=== PATIENT | male | born 1955 | race Caucasian/White ===

== ENCOUNTER 2021-10-20 08:45 | Day surgery (SDC) | payer BC ==
[2021-10-17 09:11] VITALS: BMI 25.0
[2021-10-20] MEDS ORDERED: LIDOCAINE HCL 2% (20ML MULTI-DOSE VIAL) ONE (08:53)
[2021-10-20] MEDS ORDERED: EPINEPHrine/PF 1 MG/1 ML (1:1,000) AMPULE ONE (08:53)
[2021-10-20] MEDS ORDERED: BUPIVACAINE HCL/PF 0.25% (2.5MG/ML) 10 ML VIAL ONE (08:53)
[2021-10-20] MEDS ORDERED: SUCCINYLCHOLINE CHLORIDE 200 MG/10 ML SYRINGE ONE (08:53)
[2021-10-20] MEDS ORDERED: PROPOFOL 20 ML ONE ×4 (08:53→13:58)
[2021-10-20] MEDS ORDERED: BUPIVACAINE HCL/PF 2.5 MG/ML - 30 ML VIAL IJ ONE (08:53)
[2021-10-20] MEDS ORDERED: BUPIVACAINE LIPOSOME/PF (EXPAREL) 266 MG/20 ML VIAL ONE (08:58)
[2021-10-20] MEDS ORDERED: HEPARIN NA (PORCINE) 5,000 UNITS/ML 1ML VIAL ONE (10:11)
[2021-10-20] MEDS ORDERED: DEXAMETHASONE SOD PHOSPHATE 4 MG/1 ML VIAL ONE (10:29)
[2021-10-20] MEDS ORDERED: ceFAZolin SODIUM 1 GM VIAL ONE ×3 (10:29→21:26)
[2021-10-20] MEDS ORDERED: HYDROmorphone HCL/PF 1 MG/ML VIAL ONE ×2 (10:35→10:57)
[2021-10-20] MEDS ORDERED: ROCURONIUM BROMIDE 50 MG/5 ML SYRINGE ONE ×2 (10:36→11:32)
[2021-10-20] MEDS ORDERED: BUPIVACAINE LIPOSOME/PF (EXPAREL) 266 MG/20 ML VIAL IJ ONE (11:39)
[2021-10-20] MEDS ORDERED: BUPIVACAINE HCL/PF 0.25% (2.5MG/ML) 10 ML VIAL IJ ONE (11:39)
[2021-10-20] MEDS ORDERED: BACITRACIN 15 GM TUBE TOPICAL OINTMENT ONE (12:34)
[2021-10-20] MEDS ORDERED: DESFLURANE GAS 240 ML BOTTLE IH ONE (12:43)
[2021-10-20] MEDS ORDERED: NEOSTIGMINE METHYLSULFATE 0.5 MG/1 ML - 10 ML MDV ONE (14:01)
[2021-10-20] MEDS ORDERED: ONDANSETRON 4 MG/2 ML VIAL IVPB PRN (14:19)
[2021-10-20] MEDS ORDERED: oxyCODONE HCL 5 MG TABLET PO PRN (14:19)
[2021-10-20] MEDS ORDERED: PROMETHAZINE HCL 25 MG/1 ML VIAL IVPUSH PRN (14:23)
[2021-10-20] MEDS ORDERED: ACETAMINOPHEN 1000 MG/100 ML BAG IVPB PRN (14:24)
[2021-10-20] MEDS ORDERED: LACTATED RINGERS SOLUTION 1,000 ML IV SCH (14:30)
[2021-10-20] MEDS: morphine SULFATE 4 MG/ML VIAL IVPUSH PRN ×2 (16:42→21:28)
[2021-10-20] MEDS ORDERED: DEXTROSE 5%-WATER - 50 ML IVPB ONE ×2 (17:40→21:26)
[2021-10-20] MEDS: CEFAZOLIN 1 GM in DEXTROSE 5%-WATER - 50 ML IVPB SCH ×2 (17:45→23:19)
[2021-10-20] MEDS: CARBIDOP 25MG/LEVODOPA 100MG/ENTACAPONE 200MG TABLET PO SCH ×2 (18:35→21:23)
[2021-10-20] MEDS ORDERED: ATORVASTATIN CA 20 MG TABLET (FP) PO SCH (22:00)
[2021-10-21] MEDS: oxyCODONE HCL 5 MG TABLET PO PRN ×2 (00:24→09:26)
[2021-10-21] MEDS ORDERED: ceFAZolin SODIUM 1 GM VIAL ONE (06:02)
[2021-10-21] MEDS ORDERED: DEXTROSE 5%-WATER - 50 ML IVPB ONE (06:02)
[2021-10-21] MEDS: CEFAZOLIN 1 GM in DEXTROSE 5%-WATER - 50 ML IVPB SCH (06:05)
[2021-10-21] MEDS: HEPARIN NA (PORCINE) 5,000 UNITS/ML 1ML VIAL SQ SCH ×2 (08:28→09:27)
[2021-10-21 09:12] VITALS: BP 131/85; PULSE 90; TEMP 98.2
[2021-10-21] MEDS: CARBIDOP 25MG/LEVODOPA 100MG/ENTACAPONE 200MG TABLET PO SCH (09:26)
[2021-10-21] MEDS ORDERED: RAMIPRIL 5 MG CAPSULE PO SCH (10:00)
[2021-10-21] MEDS ORDERED: FLUTICASONE PROP 0.05% 16 GM NASAL SPRAY NS SCH (10:00)
== END 2021-10-21 10:28 | disposition home or self-care (01) ==
LOC: FASUSAT 08:45 → FM/S 15:49 → FASUSAT 10-21 10:28
PROVIDERS: ATTEND Plastic Surgery
PROC: 0J080ZZ Alteration of Abdomen Subcutaneous Tissue and Fascia, Open Approach (ICD-10-PCS; principal; 2021-10-20 10:50)
PROC: 0J083ZZ Alteration of Abdomen Subcutaneous Tissue and Fascia, Percutaneous Approach (ICD-10-PCS; 2021-10-20 10:50)
DX: M95.8 Other specified acquired deformities of musculoskeletal system (principal)
CPT/HCPCS: 94010; 94760; J1644